=== PATIENT | female | born 1990 | race Caucasian/White ===

== ENCOUNTER 2017-12-23 05:40 | Day surgery (SDC) | payer OTHER ==
[2017-12-23] VITALS (11 sets, daily range): BP systolic 116–142; BP diastolic 50–74
[~2017-12-23] VITALS: Ht 162.6 cm; Wt 71.7 kg
[2017-12-23] MEDS ORDERED: PRISTIQ ER100 MG PO (06:20)
--- NOTE | 2017-12-23 07:01 | Pre-Procedure Note/Attestation ---
Pre-Procedure Note/Attestation Complete Prior to Procedure Planned Procedure: bilateral Procedure Narrative: Bilateral mastectomy with free nipple areolar grafts Indications for Procedure Pre-Operative Diagnosis: Gender dysphoria, macromastia with ptosis Attestation I attest that I discussed the nature of the procedure; its benefits; risks and complications; and alternatives (and the risks and benefits of such alternatives ), prior to the procedure, with the patient (or the patient's legal labor representative). I attest that, if there was a reasonable possibility of needing a blood transfusion, the patient (or the patient's legal labor representative) was given the [facility] standardized written summary, pursuant to the [employer] Blood Safety Act ([place] Health and Safety Code # 1645, as amended). I attest that I re-evaluated the patient just prior to the surgery and that there has been no change in the patient's H&P, except as documented below: Chencho Handley MD Dec 23, 2017 07:01
[2017-12-23] MEDS ORDERED: Muri-Lube ONE (07:06)
[2017-12-23] MEDS ORDERED: Bacitracin Oint 15gm Tube TOPIC ONE (07:06)
[2017-12-23] MEDS ORDERED: Nitroglycerin 2% oint pkt TOPIC ONE (07:07)
[2017-12-23] MEDS ORDERED: Lidocaine 1% 10mg/ml/Epi 0.005mg/ml 30ml vial INJ ONE ×2 (07:07→12:16)
[2017-12-23] MEDS ORDERED: Bacitracin 50000 Units Vial ONE (07:07)
[2017-12-23] MEDS ORDERED: fentaNYL 100 mcg/2 mL IV ONE (07:16)
[2017-12-23] MEDS ORDERED: Midazolam 2mg/2ml Inj ONE (07:16)
[2017-12-23] MEDS ORDERED: Propofol 200mg/20ml IV ONE (07:17)
[2017-12-23] MEDS ORDERED: Lidocaine 1% MPF 10mg/ml 5ml ONE (07:17)
[2017-12-23] MEDS ORDERED: Sodium Chloride 10ml vial INJ ONE (07:17)
[2017-12-23] MEDS ORDERED: Dyna-Hex 2% Top Sol 2oz TOPIC ONE (07:18)
[2017-12-23] MEDS ORDERED: Sterile Water Irrig 1000ml IRRIG ONE (07:30)
[2017-12-23] MEDS ORDERED: LR 1000ml ONE (07:30)
[2017-12-23] MEDS ORDERED: NS Irrig 1000ml ONE (07:30)
[2017-12-23] MEDS ORDERED: Clindamycin 600mg 50 ML IV ONE (07:30)
[2017-12-23] MEDS ORDERED: ePHEDrine 50mg/ml Inj ONE ×2 (08:01→08:09)
[2017-12-23] MEDS ORDERED: LR 1000ml 1,000 ML IVLG SCH (08:37)
[2017-12-23] MEDS ORDERED: LORazepam Inj 2mg/ml 1ml IV PRN (08:45)
[2017-12-23] MEDS ORDERED: Meperidine 50mg/ml Inj(FOR RIGORS ONLY) IVP PRN (08:45)
[2017-12-23] MEDS ORDERED: DiphenhydrAMINE 50mg/ml Inj IVP PRN (08:45)
[2017-12-23] MEDS ORDERED: Hydromorphone 0.5mg/0.5ml inj IVP PRN (08:45)
--- NOTE | 2017-12-23 08:45 | Anethesia Preoperative Eval ---
Anesthesia Pre-op PMH/ROS General Date of Evaluation: Dec 23, 2017 Time of Evaluation: 07:30 Anesthesiologist: Adela ASA Score: ASA 1 Mallampati Score Class I : Soft palate, uvula, fauces, pillars visible Class II: Soft palate, uvula, fauces visible Class III: Soft palate, base of uvula visible Class IV: Only hard plate visible Mallampati Classification: Class II Surgeon: Emmanuelle Diagnosis: Gender Dysphoria Surgical Procedure: Bilateral Mastectomy Family History: no anesthesia problems Allergies: Coded Allergies: CEFTRIAXONE (Verified Allergy, Severe, Hives, 12/23/17) Medications: see eMAR Past Medical History Cardiovascular: Denies: HTN, CAD, PR, valve dz, arrhythmia, other Pulmonary: Denies: asthma, COPD, RICA, other Gastrointestinal/Genitourinary: Denies: GERD, CRI, ESRD, other Neurologic/Psychiatric: Denies: dementia, CVA, depression/anxiety, TIA, other Endocrine: Denies: DM, hypothyroidism, steroids, other HEENT: Denies: cataract (L), cataract (R), glaucoma, THREE AFFILIATED (L), THREE AFFILIATED (R), other Hematology/Immune: Denies: anemia, DVT, bleeding disorder, other Musculoskeletal/Integumentary: Denies: OA, RA, DJD, DDD, edema, other PMH Narrative: Denies significant PMH PSxH Narrative: Myringotomy tubes Anesthesia Pre-op Phys. Exam Physician Exam Last Vital Signs Date Time Temp Pulse Resp B/P (MAP) Pulse Ox O2 Delivery O2 Flow Rate FiO2 12/23/17 06:23 Room Air 12/23/17 06:14 97.5 66 18 116/74 (88) 97 97.5 Constitutional: NAD Neurologic: CN 2-12 intact Cardiovascular: RRR, no M/R/G Respiratory: CTA Gastrointestinal: S/NT/ND Airway Exam Mallampati Score: Class II MO: full ROM: full Teeth: intact Anesthesia Pre-op A/P Labs WNL Urine Test Test 12/23/17 05:50 Urine HCG, Qualitative Negative (NEGATIVE) Risk Assessment & Plan Assessment: Healthy female for bilateral mastectomy Plan: GA, LMA Status Change Before Surgery: No Pre-Antibiotics Drug: Clindamycin Given Within 1 Hr of Incision: Yes Time Given: 07:45 Gal Chapman MD Dec 23, 2017 08:45
--- NOTE | 2017-12-23 08:46 | Immediate Post-Op Evaluation ---
Immediate Post-Op Evalulation Immediate Post-Op Evalulation Procedure: Bilateral mastectomy with double incision of free nipple Date of Evaluation: Dec 23, 2017 Time of Evaluation: 13:30 IV Fluids: 1800 Estimated Blood Loss: 150 Urinary Output: 300 Blood Pressure Systolic: 128 Blood Pressure Diastolic: 63 Pulse Rate: 122 Respiratory Rate: 17 O2 Sat by Pulse Oximetry: 99 Temperature (Fahrenheit): 98.2 Pain Score (1-10): 2 Nausea: No Vomiting: No Complications No complication Patient Status: awake, patent, none Hydration Status: adequate Drug: Clindamycin Given Within 1 Hr of Incision: Yes Time Given: 07:45 Gal Chapman MD Dec 23, 2017 08:46
[2017-12-23] MEDS ORDERED: EPINEPHrine 1mg/1ml Amp ONE (11:50)
[2017-12-23] MEDS ORDERED: EPINEPHrine 1mg/1ml Amp IV ONE (11:57)
--- NOTE | 2017-12-23 13:31 | Brief Operative Note ---
Immediate Post Operative Note Operative Note Pre-op Diagnosis: Gender dysphoria, macromastia with ptosis Procedure: Bilateral mastectomy with free nipple areolar grafts Post-op Diagnosis: same as pre-op Surgeon: Emmanuelle Parish Visitor: Greta Ashraf PA-C Anesthesiologist: Gal Chapman Anesthesia: general Specimen: yes Complications: none Condition: stable Fluids: 1.7L Estimated Blood Loss: volume - 150cc Drains: LAWRENCE Implant(s) used?: No Chencho Handley MD Dec 23, 2017 13:31
--- NOTE | 2017-12-23 22:15 | Operative Note - Dictated ---
DATE OF OPERATION: 12/23/2017 SURGEON: Chencho Handley M.D. BINDER CHAINSTITCH: Greta Ashraf PA-C. ANESTHESIOLOGIST: Gal Chapman M.D. PREOPERATIVE DIAGNOSES: 1. Gender dysphoria. 2. Macromastia with breast ptosis. POSTOPERATIVE DIAGNOSES: 1. Gender dysphoria. 2. Macromastia with breast ptosis. OPERATION: Double mastectomy with free nipple-areolar graft. ANESTHESIA: General anesthesia. OPERATIVE INDICATIONS: This is a 27-year-old patient who was diagnosed with gender dysphoria and has been under the care of a therapist for years. She is ready to undergo physical transitioning and on physical exam was noted to have macromastia with left breast larger than the right as well as grade 3 ptosis. An operative plan was devised and agreed upon and photographs and informed consent were obtained. Once she was medically cleared, she was scheduled for elective surgery. The patient was seen in the preoperative area. The operative plan was again discussed and agreed upon. Operative markings were made. An IV was placed and she was taken back to the operating room. DESCRIPTION OF PROCEDURE: The patient was placed on the operative table in supine position. Once SCDs were placed on bilateral lower extremities, general endotracheal anesthesia was induced and a Villalpando catheter was sterilely placed and then her chest and abdomen were prepped and draped in usual sterile fashion. A 30 mL of lidocaine 1% with 1:200,000 epinephrine was injected on the left side along the incisions and after waiting for appropriate amount of time, a 25 mm cookie cutter was used to chasity the new areola size. This was then incised with a #15 blade and the nipple-areolar complex was removed en bloc to be later reattached as a free graft. Following this, a #10 blade was used to make the the incisions along the preoperative markings. The dissection proceeded down with electrocautery to the pectoralis fascia inferiorly. The skin and subcutaneous tissue flap was then elevated superiorly until the superior aspect of the breast was reached the pectoralis fascia border. The breast was then removed en bloc and taken off the field. Final contour modifications were made to achieve a more pleasing contour along the superior flap. At this point, irrigation was performed of the pocket and then hemostasis was carefully obtained. A #15 fluted LAWRENCE drain was then placed through the axilla with a trocar and secured to the skin with 3-0 nylon. The incision was then closed with 2-0 PDS in the deep Lorna's fascia level followed by 3-0 Vicryl in deep subcutaneous tissue, 3-0 Monocryl in deep dermis, and 4-0 Monocryl in running, subcuticular fashion. A 30 mL of lidocaine 1% with 1:200,000 epinephrine was injected to the right side along the incisions and a 25 mm cookie cutter was then used on this areola to chasity a new areola size. Exactly the same technique was performed on the right side to remove the nipple-areolar complex as well as the breast tissue as was performed on the left side. Once the right-side breast was removed, the pocket was irrigated and hemostasis was carefully obtained. A 15-Vietnamese fluted LAWRENCE drain was also passed via trocar through the skin into the axilla and secured to the skin with 3-0 nylon. The incision was then closed with 2-0 PDS in simple interrupted fashion in the Lorna's layer followed by 3-0 Vicryl in the deep soft tissue, then 3-0 Monocryl in the deep dermis, and 4-0 Monocryl in running subcuticular fashion. Of note, the incisions tended to meet in the midline due to the size of the patient's breasts and medial proximity to avoid any dog ears medially. At this point, the nipple-areolar complexes were thinned to the level of full-thickness skin graft and pie-crusted with an #11 blade. The patient was sat up with the arms at the sides and the new nipple-areolar positions were marked with a 25 mm cookie cutter. The skin was incised and de-epithelialized. Straight epinephrine was used for hemostasis of these grafted sites and then using 5-0 plain gut suture in simple interrupted at the 12, 3, 6, and 9 o'clock position. The nipple-areolar grafts were tacked into place. A 5-0 Monocryl was then used in a running subcuticular fashion to suture the nipple-areolar grafts in place. Tie-over bolsters of Xeroform and cotton balls with mineral oil were then placed. Prior to this, Nitropaste was placed over the nipple-areolar grafts. The tie-over bolsters were secured with 4-0 silk suture and following this, the Steri-Strips were then placed on the incisions followed by compression foam and a compression vest. The patient was then extubated, but prior to this, the Villalpando catheter was removed. She was then transferred to the recovery room in stable condition. There were no complications. Total IV fluids was 1.7 L. Total urine output was 300 mL. Total weight on the left breast was 1260 grams and on the right was 1170 grams and EBL was 150 mL. The patient was stable. Chencho Handley M.D. DR: Chace JOB#: [id number] CC:
== END 2017-12-23 16:05 | disposition home or self-care (01) ==
LOC: SUR 05:40
DX: F64.9 Gender identity disorder, unspecified (principal); N62 Hypertrophy of breast; N64.81 Ptosis of breast; F32.9 Major depressive disorder, single episode, unspecified; G47.33 Obstructive sleep apnea (adult) (pediatric)
CPT/HCPCS: 19303; 19499; 81025; J0171; J0690; J1170; J2250; J2405; J2704; J3010; 94003; 94150; S0077